=== PATIENT | female | born 1975 | race Caucasian/White ===

== ENCOUNTER → 2016-10-18 | Outpatient (CLI) | payer BC | LOC: KOH-I 15:00 | DX: M54.6 Pain in thoracic spine (principal); G89.29 Other chronic pain; M51.24 Other intervertebral disc displacement, thoracic region | CPT/HCPCS: 72146 ==

== ENCOUNTER → 2016-12-13 | Outpatient (CLI) | payer BC | LOC: SLEEP 10:50 | DX: G47.33 Obstructive sleep apnea (adult) (pediatric) (principal) | CPT/HCPCS: 95810 ==